=== PATIENT | female | born 1960 | race Caucasian/White ===

== ENCOUNTER 2017-01-24 17:00 | Emergency (ER) | payer OTHER ==
[~2017-01-24] VITALS: Ht 162.5 cm; Wt 120.2 kg
[~2017-01-24 17:00] MED LIST: AMOXICILLIN500 MG PO; AMOXIL500 MG PO; ANAPROX DS550 MG PO; ANTIVERT/2525 MG PO; CIPRODEX 0.3%-7.5 ML OT; CLARITIN; CLARITIN10 MG PO; DIFLUCAN150 MG PO; ELIMITE 5%60 GM PO; LIDEX0.05% T; LOTENSIN20 MG PO; MEDROL DOSEPAK4 MG PO; MOTRIN600 MG PO; MOTRIN800 MG PO; NAPROSYN500 MG PO; PHENERGAN W/DM120 ML PO; PREDNICOT10 MG PO; PREDNISONE10 MG PO; PREDNISONE20 MG PO; PROAIR HFA0.09 MG/AC IH; SEPTRA DS 800 M1 TAB PO; TAMIFLU75 MG PO; TRIMOX500 MG PO; VICODIN 5/500 505 MG PO; ZITHROMAX Z PA250 MG PO; ZOFRAN ODT4 MG SL; ZYRTEC10 M2 PO; [UNRECOGNIZED DRUG - REMARK]
[2017-01-24] MEDS ORDERED: TUSSIN DM 10 M120 M1 PO (17:05)
[2017-01-24] MEDS ORDERED: ZITHROMAX250 MG PO (17:15)
[2017-01-24] MEDS ORDERED: ZOFRAN ODT4 MG SL (17:15)
[2017-01-24] MEDS ORDERED: MEDROL DOSEPAK4 MG PO (17:15)
== END 2017-01-24 17:17 | disposition home or self-care (01) ==
LOC: ED 17:00
DX: J40 Bronchitis, not specified as acute or chronic (principal); R11.2 Nausea with vomiting, unspecified; Z79.899 Other long term (current) drug therapy

== ENCOUNTER 2017-03-28 22:11 | Emergency (ER) | payer OTHER ==
[~2017-03-28] VITALS: Ht 162.5 cm; Wt 121.6 kg
[~2017-03-28 22:11] MED LIST changes: +TUSSIN DM 10 M120 M1 PO; +ZITHROMAX250 MG PO
[2017-03-28] MEDS ORDERED: ZITHROMAX250 MG PO (22:45)
[2017-03-28] MEDS ORDERED: DELTASONE20 M1 PO (22:45)
== END 2017-03-28 23:09 | disposition home or self-care (01) ==
LOC: ED 22:11
DX: J40 Bronchitis, not specified as acute or chronic (principal)

== ENCOUNTER 2017-05-09 16:50 | Emergency (ER) | payer OTHER ==
[~2017-05-09 16:50] MED LIST changes: +DELTASONE20 M1 PO
[2017-05-09] MEDS ORDERED: AMOXICILLIN500 M2 PO (17:32)
[2017-05-09] MEDS ORDERED: ZYRTEC10 MG PO (17:32)
== END 2017-05-09 17:34 | disposition home or self-care (01) ==
LOC: ED 16:50
DX: J01.90 Acute sinusitis, unspecified (principal)

== ENCOUNTER 2018-03-11 16:22 | Emergency (ER) | payer OTHER ==
[~2018-03-11] VITALS: Ht 152.4 cm; Wt 117.9 kg
[~2018-03-11 16:22] MED LIST changes: +AMOXICILLIN500 M2 PO; +ZYRTEC10 MG PO
[2018-03-11] MEDS ORDERED: ZYRTEC10 MG PO (17:39)
[2018-03-11] MEDS ORDERED: DELTASONE20 M1 PO (17:39)
== END 2018-03-11 17:51 | disposition home or self-care (01) ==
LOC: ED 16:22
DX: J06.9 Acute upper respiratory infection, unspecified (principal); Z79.899 Other long term (current) drug therapy

== ENCOUNTER 2018-05-06 10:42 | Emergency (ER) | payer OTHER ==
[~2018-05-06] VITALS: Ht 163.8 cm; Wt 121.6 kg
--- NOTE | ~2018-05-06 | EKG ---
[place], [place] ELECTROCARDIOGRAM REPORT NAME: YUMIKO EDWARDS UNIT #: [id number] ROOM: DOCTOR: YUNG DRAFT REPORT BIRTHDATE: [birth year] [facility] Test Date: 2018-05-06 Test Time: 12:18:03 Pat Name: YUMIKO EDWARDS Department: Room: Gender: F [employer]ilities Operator: : 1960 Requested By: ANTOINE GENAO Order Number: [id number] Reading MD: Lakisha Clayton MD Measurements Intervals [place] Rate: 74 P: 2 OK: 148 QRS: 22 QRSD: 85 T: 52 QT: 376 QTc: 418 Interpretive Statements Sinus rhythm Normal ECG Electronically Signed On 05-11-2018 14:19:47 PDT by Lakisha Clayton MD CM:EKGRPT:ELECTROCARDIOGRAM REPORT [id number] ANTOINE BARRAGAN DRAFT REPORT ANTOINE ZAFAR
[2018-05-06] MEDS ORDERED: ZYRTEC10 M3 PO (10:46)
[2018-05-06 12:14] LABS: BASO # 0.1 10*3/uL (0.0-0.1); BASO % 0.7 % (0.0-1.0); EOS # 0.3 10*3/uL (0.0-0.4); EOS % 3.6 % (1.0-4.0); HEMATOCRIT 41.8 % (37.0-47.0); HEMOGLOBIN 12.9 g/dl (12.0-16.0); LYMPH # 2.5 10*3/uL (1.3-4.4); LYMPH % 29.9 % (27.0-41.0); MEAN CELL VOLUME 84.4 fl (81.0-99.0); MEAN CORPUSCULAR HGB 26.1 pg (27.0-31.0); MEAN CORPUSCULAR HGB CONC 30.9 g/dl (33.0-37.0); MONO # 0.5 10*3/uL (0.1-1.0); MONO % 6.6 % (3.0-9.0); NEUT # 4.9 10*3/uL (2.3-7.9); NEUT % 58.8 % (47.0-73.0); PLATELET COUNT AUTOMATED 266 10*3/uL (130-400); RED BLOOD COUNT 4.95 10*6/uL (4.10-5.10); RED CELL DISTRI WIDTH 14.6 % (0-14.5); WHITE BLOOD COUNT 8.2 10*3/uL (4.8-10.8)
[2018-05-06 12:23] LABS: ACT PARTIAL THROMBO TIME 25.8 SECONDS (20.8-31.5); INTERNATIONAL NORM RATIO 0.9 (2.0-3.5)
[2018-05-06 12:34] LABS: ALKALINE PHOSPHATASE 89 U/L (45-117); BUN 26 mg/dl (7-24); CHLORIDE 107 mmol/L (98-107); CREATININE 0.85 mg/dL (0.55-1.02); LIPASE 100 U/L (73-393); POTASSIUM 4.3 mmol/L (3.5-5.1); SGOT/AST 15 IU/L (3-35); SGPT/ALT 34 U/L (12-78); SODIUM 142 mmol/L (136-145); TOTAL PROTEIN 7.7 gm/dL (6.4-8.2)
[2018-05-06 12:35] LABS: TROPONIN I < 0.015 ng/ml (<0.045)
[2018-05-06] MEDS ORDERED: MEDI-MECLIZINE25 MG PO (13:49)
== END 2018-05-06 14:34 | disposition home or self-care (01) ==
LOC: ED 10:42
PROVIDERS: Physician Assistant
DX: R42 Dizziness and giddiness (principal); Z98.890 Other specified postprocedural states; Z79.899 Other long term (current) drug therapy

== ENCOUNTER 2020-04-12 16:55 | Emergency (ER) | payer OTHER ==
[~2020-04-12] VITALS: Ht 165.1 cm; Wt 121.6 kg
[~2020-04-12 16:55] MED LIST changes: +CIPRO500 MG PO; +MEDI-MECLIZINE25 MG PO; +ZYRTEC10 M3 PO
[2020-04-12] MEDS ORDERED: Kenalog 0.5% Cr15 GM T (17:57)
== END 2020-04-12 18:00 | disposition home or self-care (01) ==
LOC: ED 16:55
DX: L25.9 Unspecified contact dermatitis, unspecified cause (principal); Z79.899 Other long term (current) drug therapy

== ENCOUNTER 2021-06-20 11:37 | Emergency (ER) | payer OTHER ==
[~2021-06-20 11:37] MED LIST changes: +Kenalog 0.5% Cr15 GM T
[2021-06-20] MEDS ORDERED: IBUPROFEN600 MG PO (12:42)
[2021-06-20] MEDS ORDERED: AMOXICILLIN500 M2 PO (12:42)
== END 2021-06-20 12:50 | disposition home or self-care (01) ==
LOC: ED 11:37
DX: K08.89 Other specified disorders of teeth and supporting structures (principal); Z79.899 Other long term (current) drug therapy

== ENCOUNTER 2021-12-18 19:08 | Emergency (ER) | payer OTHER ==
[~2021-12-18] VITALS: Ht 162.5 cm; Wt 126.1 kg
[~2021-12-18 19:08] MED LIST changes: +IBUPROFEN600 MG PO
[2021-12-18] MEDS ORDERED: DAILY VALUE1 EACH PO (19:16)
[2021-12-18] MEDS ORDERED: VITAMIN D3125 MC1 PO (19:17)
[2021-12-18] MEDS ORDERED: FLONASE ALLERG9.9 ML NAS (19:17)
[2021-12-18] MEDS ORDERED: PENICILLIN VK500 MG PO (19:34)
== END 2021-12-18 19:45 | disposition home or self-care (01) ==
LOC: ED 19:08
DX: K02.9 Dental caries, unspecified (principal); Z79.899 Other long term (current) drug therapy

== ENCOUNTER 2022-03-17 14:11 | Emergency (ER) | payer OTHER ==
[~2022-03-17] VITALS: Wt 126.1 kg
[~2022-03-17 14:11] MED LIST changes: +DAILY VALUE1 EACH PO; +FLONASE ALLERG9.9 ML NAS; +PENICILLIN VK500 MG PO; +VITAMIN D3125 MC1 PO
[2022-03-17] MEDS ORDERED: PENICILLIN VK500 MG PO (16:21)
== END 2022-03-17 16:52 | disposition home or self-care (01) ==
LOC: ED 14:11
DX: K08.89 Other specified disorders of teeth and supporting structures (principal)

== ENCOUNTER 2022-08-17 16:04 | Emergency (ER) | payer OTHER ==
[~2022-08-17] VITALS: Ht 162.5 cm; Wt 122.5 kg
[2022-08-17] MEDS ORDERED: CLINDAMYCIN HC300 MG PO (16:18)
== END 2022-08-17 16:45 | disposition home or self-care (01) ==
LOC: ED 16:04
DX: K02.9 Dental caries, unspecified (principal); Z79.899 Other long term (current) drug therapy; Z98.890 Other specified postprocedural states

== ENCOUNTER 2022-11-19 14:43 | Emergency (ER) | payer OTHER ==
[~2022-11-19] VITALS: Wt 124.7 kg
[~2022-11-19 14:43] MED LIST changes: +CLINDAMYCIN HC300 MG PO
== END 2022-11-19 16:28 | disposition home or self-care (01) ==
LOC: ED 14:43
DX: K42.9 Umbilical hernia without obstruction or gangrene (principal); Z98.890 Other specified postprocedural states; I10 Essential (primary) hypertension

== ENCOUNTER → 2022-12-16 | Day surgery (SDC) | payer OTHER ==
[~2022-12-16] VITALS: Ht 162.5 cm; Wt 5.0 kg
[~2022-12-16] MED LIST changes: +COLACE100 MG PO; +HYDROCODONE-AC1 EAC1 PO; +ONDANSETRON HYDR4 M1 PO
[2022-12-16 09:50] VITALS: BP 141/80
[2022-12-16 12:20] VITALS: BP 143/103
[2022-12-16 12:35] VITALS: BP 151/103
[2022-12-16 12:50] VITALS: BP 158/87
[2022-12-16 13:05] VITALS: BP 155/87
[2022-12-16 13:20] VITALS: BP 106/46
== END | disposition home or self-care (01) ==
LOC: SDC 12-12 14:00
PROVIDERS: ATTEND Surgery
DX: K43.6 Other and unspecified ventral hernia with obstruction, without gangrene (principal); I10 Essential (primary) hypertension; E78.5 Hyperlipidemia, unspecified; Z79.899 Other long term (current) drug therapy

== ENCOUNTER 2023-05-18 15:43 | Emergency (ER) | payer OTHER ==
[~2023-05-18] VITALS: Ht 162.5 cm; Wt 124.7 kg
[2023-05-18] MEDS ORDERED: PENICILLIN-VK500 MG PO (16:09)
== END 2023-05-18 16:12 | disposition home or self-care (01) ==
LOC: ED 15:43
DX: K04.7 Periapical abscess without sinus (principal); F17.200 Nicotine dependence, unspecified, uncomplicated; Z79.899 Other long term (current) drug therapy; Z98.890 Other specified postprocedural states

== ENCOUNTER 2023-06-18 15:20 | Emergency (ER) | payer OTHER ==
[~2023-06-18] VITALS: Ht 162.5 cm; Wt 124.7 kg
[~2023-06-18 15:20] MED LIST changes: +PENICILLIN-VK500 MG PO
[2023-06-18 18:26] LABS: BILIRUBIN Negative (Negative); BLOOD Trace-Lysed (Negative); CLARITY Cloudy (Clear); COLOR Dark Yellow (Yellow); GLUCOSE Negative (Negative); KETONE Trace (Negative); PH 5.5 (4.5-8.0); SPECIFIC GRAVITY 1.025 (1.001-1.030)
[2023-06-18 18:27] LABS: LEUKO ESTERASE 2+ (Negative); NITRITE Negative (Negative)
[2023-06-18 19:06] LABS: BACTERIA 1+; RBC 0-2 rbc/hpf (0-2); WBC 51-100 wbc/hpf (0-5)
[2023-06-18] MEDS ORDERED: IBUPROFEN600 MG PO (19:36)
[2023-06-18] MEDS ORDERED: SEPTDS PO (19:36)
== END 2023-06-18 19:58 | disposition home or self-care (01) ==
LOC: ED 15:20
PROVIDERS: Physician Assistant
DX: N39.0 Urinary tract infection, site not specified (principal); K02.9 Dental caries, unspecified; Z79.899 Other long term (current) drug therapy; Z98.890 Other specified postprocedural states

== ENCOUNTER 2023-07-18 17:49 | Emergency (ER) | payer OTHER ==
[~2023-07-18] VITALS: Ht 160 cm; Wt 124.7 kg
[~2023-07-18 17:49] MED LIST changes: +SEPTDS PO
[2023-07-18] MEDS ORDERED: AMOX-CLAV 875-1 EACH PO (18:19)
== END 2023-07-18 18:56 | disposition home or self-care (01) ==
LOC: ED 17:49
DX: K02.9 Dental caries, unspecified (principal); K04.7 Periapical abscess without sinus; I10 Essential (primary) hypertension; Z98.890 Other specified postprocedural states

== ENCOUNTER 2024-03-21 13:28 | Emergency (ER) | payer OTHER ==
[~2024-03-21] VITALS: Ht 162.5 cm; Wt 136.1 kg
[~2024-03-21 13:28] MED LIST changes: +AMOX-CLAV 875-1 EACH PO; +CEPHALEXIN500 M1 PO
[2024-03-21] MEDS ORDERED: VIBRAMYCIN100 MG PO (13:50)
[2024-03-21] MEDS ORDERED: CEPHALEXIN 500 MG CAP PO ONE (13:50)
[2024-03-21] MEDS ORDERED: Doxycycline Hyclate 100 MG CAP PO ONE (13:55)
== END 2024-03-21 14:00 | disposition home or self-care (01) ==
LOC: ED
DX: L02.412 Cutaneous abscess of left axilla (principal); I10 Essential (primary) hypertension; Z98.890 Other specified postprocedural states

== ENCOUNTER 2025-04-13 23:42 | Emergency (ER) | payer OTHER ==
[~2025-04-13] VITALS: Ht 162.5 cm; Wt 121.6 kg
[~2025-04-13 23:42] MED LIST changes: +PREDNISONE50 MG PO; +VIBRAMYCIN100 MG PO; +ZITHROMAX500 MG PO
== END 2025-04-14 01:57 | disposition home or self-care (01) ==
LOC: ED 23:42
DX: M77.31 Calcaneal spur, right foot (principal); Z79.899 Other long term (current) drug therapy; Z98.890 Other specified postprocedural states